=== PATIENT | female | born 1980 | race Caucasian/White ===

== ENCOUNTER 2019-01-21 13:47 | Emergency (ER) | payer BC ==
[~2019-01-21 13:47] MED LIST: Sodium Chloride Irrig Solution 250 ML BOT ONE
[2019-01-21] MEDS ORDERED: Bupivacaine PF 0.5% 30 ML VIAL ONE (14:04)
[2019-01-21] MEDS ORDERED: Adacel (T-DAP) 0.5 ML SYRINGE ONE (14:52)
== END 2019-01-21 15:08 | disposition home or self-care (01) ==
LOC: MADERS 13:47
DX: S61.215A Laceration without foreign body of left ring finger without damage to nail, initial encounter (principal); W26.0XXA Contact with knife, initial encounter
CPT/HCPCS: 12001; 90471; 90715; S0020